=== PATIENT | female | born 1995 | race Hispanic/Latino ===

== ENCOUNTER → 2017-11-18 | Outpatient (CLI) | payer BC | END | disposition home or self-care (01) | LOC: RAH 08:23 | PROVIDERS: ATTEND Family Medicine | DX: R10.9 Unspecified abdominal pain (principal) | CPT/HCPCS: 76700 ==

== ENCOUNTER 2020-06-23 21:17 | Observation (INO) | payer BC, MEDICAID ==
[~2020-06-23] VITALS: Ht 160 cm; Wt 77.1 kg
[2020-06-23 22:22] LABS: APPEARANCE,URINE Clear (CLEAR); BILIRUBIN,URINE Negative (NEGATIVE); COLOR,URINE Yellow (YELLOW); GLUCOSE, URINE (UA) Negative (NEGATIVE); KETONES,URINE Trace mg/dL (NEGATIVE); LEUKOCYTE ESTERASE ,URINE Small (NEGATIVE); NITRATE,URINE Negative (NEGATIVE); OCCULT BLOOD,URINE Negative (NEGATIVE); PH,URINE 6.5 (5.0-8.0); PROTEIN,URINE Trace mg/dL (NEGATIVE)
[2020-06-23 23:05] LABS: RBC,URINE 0-1 /HPF (0-1)
[2020-06-23 23:06] LABS: BACTERIA,URINE Few /HPF (None Seen)
[2020-06-23] MEDS ORDERED: LACTATED RINGERS 1000ML 1,000 ML IV SCH (23:15)
[2020-06-23] MEDS ORDERED: LACTATED RINGERS 1000ML 1,000 ML IV ONE (23:19)
[2020-06-24] LABS: HEMATOCRIT 32.7 % (36-48); MEAN CORPUSCULAR HEMOGLOBIN 29.9 pg (27.0-33.0); MEAN CORPUSCULAR HGB CONC 33.3 g/dL (32.0-36.0); MEAN CORPUSCULAR VOLUME 89.8 fL (79-99); RED BLOOD CELL COUNT(AUTO) 3.64 MIL/uL (4.00-5.50); RED CELL DISTRIBUTION WIDTH 12.8 % (11.0-15.5); WHITE BLOOD COUNT (AUTO) 7.7 K/uL (4.8-10.8)
[2020-06-24 01:43] VITALS: BP 111/60
[2020-06-25 05:11] LABS: HEPATITIS Bs ANTIGEN SCREEN P Negative (Negative)
== END 2020-06-24 08:45 | disposition home or self-care (01) ==
LOC: EDH 21:17 → LDH 21:33
PROVIDERS: ADMIT Specialist; ATTEND Specialist
DX: O62.9 Abnormality of forces of labor, unspecified (principal); O46.92 Antepartum hemorrhage, unspecified, second trimester; Z3A.37 37 weeks gestation of pregnancy
CPT/HCPCS: 36415; 59025; 81001; 85027; 86592; 86850; 86900; 86901; 87340; 96360; 96361; 99283; G0378 ×12; J7120

== ENCOUNTER 2020-06-28 10:02 | Inpatient (IN) | payer BC, MEDICAID ==
[~2020-06-28] VITALS: Ht 160 cm; Wt 77.1 kg
[2020-06-28] MEDS: OXYTOCIN-LR 20 UNITS/1000 ML 1,000 ML IV SCH (11:45)
[2020-06-28 12:10] LABS: HEMATOCRIT 33.8 % (36-48); MEAN CORPUSCULAR VOLUME 88.3 fL (79-99); RED BLOOD CELL COUNT(AUTO) 3.83 MIL/uL (4.00-5.50); RED CELL DISTRIBUTION WIDTH 12.7 % (11.0-15.5); WHITE BLOOD COUNT (AUTO) 8.2 K/uL (4.8-10.8)
[2020-06-28 12:11] LABS: APPEARANCE,URINE Clear (CLEAR); BILIRUBIN,URINE Negative (NEGATIVE); COLOR,URINE Yellow (YELLOW); GLUCOSE, URINE (UA) Negative (NEGATIVE); KETONES,URINE Negative (NEGATIVE); LEUKOCYTE ESTERASE ,URINE Trace (NEGATIVE); NITRATE,URINE Negative (NEGATIVE); OCCULT BLOOD,URINE Negative (NEGATIVE); PH,URINE 6.5 (5.0-8.0); PROTEIN,URINE Negative (NEGATIVE)
[2020-06-28 12:33] LABS: BACTERIA,URINE Few /HPF (None Seen); SQUAMOUS EPITHELIAL CELL,UR Few /HPF (0-2)
[2020-06-28 20:11] VITALS: BP 104/59
[2020-06-29] MEDS: LACTATED RINGERS 1000ML 1,000 ML IV PRN ×2 (08:00→08:50)
[2020-06-29] MEDS ORDERED: OXYTOCIN-LR 20 UNITS/1000 ML 1,000 ML IV SCH (08:30)
[2020-06-29] MEDS ORDERED: LACTATED RINGERS 500 ML 500 ML IV PRN (08:30)
[2020-06-29] MEDS ORDERED: ROPIVACAINE 0.2% 100ML VIAL 100 ML EP SCH (08:30)
[2020-06-29] MEDS ORDERED: EPHEDRINE SULFATE 50 MG/ML AMPULE IVP PRN (08:30)
[2020-06-29] MEDS ORDERED: NALOXONE HCL 0.4 MG/1 ML ML IV PRN (08:30)
[2020-06-29 09:12] LABS: HEPATITIS Bs ANTIGEN SCREEN P Negative (Negative)
[2020-06-29] MEDS ORDERED: ACETAMINOPHEN 325 MG TAB PO PRN (11:15)
[2020-06-29] MEDS ORDERED: ACETAMINOPHEN WITH CODEINE 1 TAB TAB PO PRN (11:15)
[2020-06-29] MEDS ORDERED: MEASLES/MUMPS/RUBELLA VACCINE, LIVE 0.5 ML/VIAL SQ PRN (11:15)
[2020-06-29] MEDS ORDERED: LANOLIN 30GM OINTMENT TP PRN (11:15)
[2020-06-29] MEDS ORDERED: DIPH,PERTUSS(ACELL),TET VAC/PF 0.5 ML VIAL IM PRN (11:15)
[2020-06-29] MEDS: OXYTOCIN-LR 20 UNITS/1000 ML 1,000 ML IV SCH (11:45)
[2020-06-29 16:14] VITALS: BP 120/67
[2020-06-29 18:43] VITALS: BP 116/70
[2020-06-29] MEDS ORDERED: PREN1TAB80 PO (20:00)
[2020-06-29] MEDS: DOCUSATE SODIUM 100 MG CAP PO SCH (20:56)
[2020-06-29] MEDS: IBUPROFEN 600 MG TABLET PO PRN (20:57)
[2020-06-29 23:11] VITALS: BP 92/55
[2020-06-30 03:10] VITALS: BP 102/68
[2020-06-30] MEDS ORDERED: FLU VACC QS2020-21(6MOS UP)/PF 60 MCG/0.5 ML ML IM ONE ×2 (03:15→05:14)
[2020-06-30] MEDS ORDERED: MEASLES/MUMPS/RUBELLA VACCINE, LIVE 0.5 ML/VIAL SQ ONE (03:15)
[2020-06-30] MEDS: IBUPROFEN 600 MG TABLET PO PRN (05:31)
[2020-06-30 06:28] VITALS: BP 103/62
[2020-06-30] MEDS: DOCUSATE SODIUM 100 MG CAP PO SCH (08:25)
[2020-06-30] MEDS: BENZOCAINE/LANOLIN/ALOE VERA 60 ML AEROSOL TP PRN ×2 (08:59→09:00)
[2020-06-30] MEDS: WITCH HAZEL 1 PAD TP PRN ×2 (08:59→09:00)
[2020-06-30 11:23] VITALS: BP 118/68
== END 2020-06-30 12:40 | disposition home or self-care (01) | DRG 807 ==
LOC: LDH 11:19 → WSH 06-29 18:31
PROVIDERS: ADMIT Specialist; ATTEND Specialist
PROC: 10E0XZZ Delivery of Products of Conception, External Approach (ICD-10-PCS; principal; 2020-06-29)
PROC: 3E0R3BZ Introduction of Anesthetic Agent into Spinal Canal, Percutaneous Approach (ICD-10-PCS; 2020-06-29)
PROC: 00HU33Z Insertion of Infusion Device into Spinal Canal, Percutaneous Approach (ICD-10-PCS; 2020-06-29)
PROC: 3E0134Z Introduction of Serum, Toxoid and Vaccine into Subcutaneous Tissue, Percutaneous Approach (ICD-10-PCS; 2020-06-29)
PROC: 0HQ9XZZ Repair Perineum Skin, External Approach (ICD-10-PCS; 2020-06-29)
PROC: 10907ZC Drainage of Amniotic Fluid, Therapeutic from Products of Conception, Via Natural or Artificial Opening (ICD-10-PCS; 2020-06-29)
PROC: 10907ZC Drainage of Amniotic Fluid, Therapeutic from Products of Conception, Via Natural or Artificial Opening (ICD-10-PCS; 2020-06-29)
PROC: 3E02340 Introduction of Influenza Vaccine into Muscle, Percutaneous Approach (ICD-10-PCS; 2020-06-30)
PROC: 3E0134Z Introduction of Serum, Toxoid and Vaccine into Subcutaneous Tissue, Percutaneous Approach (ICD-10-PCS; 2020-06-30)
PROC: 3E0134Z Introduction of Serum, Toxoid and Vaccine into Subcutaneous Tissue, Percutaneous Approach (ICD-10-PCS; 2020-06-30)
DX: O98.32 Other infections with a predominantly sexual mode of transmission complicating childbirth (principal); Z37.0 Single live birth; Z23 Encounter for immunization; O70.0 First degree perineal laceration during delivery; A56.8 Sexually transmitted chlamydial infection of other sites; Z3A.38 38 weeks gestation of pregnancy
CPT/HCPCS: 36415; 81001; 85027; 86592; 86850; 86900; 86901; 87340; 90707; A4314; A4606; G0378; J2590; J7120; Q2035

== ENCOUNTER 2023-03-16 19:38 | Observation (INO) | payer BC, MEDICAID ==
[~2023-03-16] VITALS: Ht 160 cm; Wt 83.0 kg
[~2023-03-16 19:38] MED LIST: PREN1TAB80 PO
[2023-03-16 19:52] VITALS: BP 119/73; PULSE 69; RESP 20
[2023-03-16 20:50] LABS: APPEARANCE,URINE CLEAR (CLEAR); BILIRUBIN,URINE NEGATIVE (NEGATIVE); COLOR,URINE LIGHT-YELLOW (YELLOW); GLUCOSE, URINE (UA) NEGATIVE (NEGATIVE); KETONES,URINE NEGATIVE (NEGATIVE); LEUKOCYTE ESTERASE ,URINE NEGATIVE Leu/uL (NEGATIVE); NITRATE,URINE NEGATIVE (NEGATIVE); OCCULT BLOOD,URINE NEGATIVE (NEGATIVE); PH,URINE 6.5 (5.0-8.0); PROTEIN,URINE NEGATIVE (NEGATIVE); UROBILINOGEN,URINE 0.2 mg/dL (0.2-1.0)
[2023-03-16 20:54] LABS: ADD UA MICROSCOPIC NO
[2023-03-16 21:12] LABS: HEMATOCRIT 32.2 % (36-48); MEAN CORPUSCULAR HEMOGLOBIN 29.2 pg (27.0-33.0); MEAN CORPUSCULAR HGB CONC 33.2 g/dL (32.0-36.0); RED BLOOD CELL COUNT(AUTO) 3.66 MIL/uL (4.00-5.50); RED CELL DISTRIBUTION WIDTH 12.8 % (11.0-15.5); WHITE BLOOD COUNT (AUTO) 10.4 K/uL (4.8-10.8)
[2023-03-16] MEDS ORDERED: LACTATED RINGERS 1000ML 1,000 ML IV PRN (21:30)
[2023-03-16] MEDS ORDERED: OXYTOCIN-LR 30 UNITS/500ML 500 ML IV SCH (21:30)
[2023-03-17 06:49] LABS: RAPID PLASMA REAGIN NONREACTIVE (NONREACTIVE)
[2023-03-18] MEDS ORDERED: LACTATED RINGERS 1000ML 1,000 ML IV ONE (12:34)
[2023-03-18] MEDS ORDERED: OXYTOCIN-LR 30 UNITS/500ML 500 ML IV ONE ×2 (12:35→16:31)
[2023-03-18] MEDS ORDERED: FENTANYL CITRATE PF 50 MCG/1 ML 2ML VIAL ONE (13:13)
[2023-03-18] MEDS ORDERED: METHYLERGONOVINE MALEATE 0.2 MG/1 ML ML ONE (15:44)
[2023-03-18] MEDS ORDERED: IBUPROFEN 600 MG TABLET ONE (19:42)
[2023-03-18] MEDS ORDERED: DOCUSATE SODIUM 100 MG CAP PO ONE (20:54)
[2023-03-18] MEDS ORDERED: PREN1TAB80 PO (21:05)
== END 2023-03-17 09:15 | disposition home or self-care (01) ==
LOC: EDH 19:38 → OBSVTOIN 20:09 → LDH 20:09 → INTOOBSV 20:09
PROVIDERS: ADMIT Obstetrics & Gynecology; ATTEND Obstetrics & Gynecology
DX: O42.92 Full-term premature rupture of membranes, unspecified as to length of time between rupture and onset of labor (principal); O62.9 Abnormality of forces of labor, unspecified; Z3A.37 37 weeks gestation of pregnancy; Z79.899 Other long term (current) drug therapy
CPT/HCPCS: 59025; 85027; 86592; 86850; 86900; 86901; 87340; 86701; 87390; 81003; 36415; 96360; 96361; G0378 ×2; J7120; J2210; J3010

== ENCOUNTER 2023-03-18 12:29 | Inpatient (IN) | payer BC, MEDICAID ==
[~2023-03-18] VITALS: Ht 160 cm; Wt 81.6 kg
[2023-03-18 15:06] LABS: BASOPHILS # (AUTO) 0.04 K/uL (0.00-0.20); BASOPHILS % (AUTO) 0.4 % (0.0-5.0); HEMATOCRIT 32.5 % (36-48); IMMATURE GRANULOCYTE ABSOLUTE 0.05 K/uL (0-1); LYMPHOCYTES % (AUTO) 19.1 % (21.0-51.0); MEAN CORPUSCULAR HEMOGLOBIN 29.1 pg (27.0-33.0); MEAN CORPUSCULAR HGB CONC 32.9 g/dL (32.0-36.0); MEAN CORPUSCULAR VOLUME 88.3 fL (79-99); MONOCYTES # (AUTO) 0.6 K/uL (0.1-1.0); MONOCYTES % (AUTO) 5.7 % (3.0-13.0); NEUTROPHILS # (AUTO) 7.8 K/uL (1.8-7.7); NEUTROPHILS % (AUTO) 74.3 % (40.0-77.0); PLATELET COUNT (AUTO) 315 K/uL (130-400); RED BLOOD CELL COUNT(AUTO) 3.68 MIL/uL (4.00-5.50); RED CELL DISTRIBUTION WIDTH 12.9 % (11.0-15.5); WHITE BLOOD COUNT (AUTO) 10.5 K/uL (4.8-10.8)
[2023-03-18] MEDS ORDERED: WITCH HAZEL 1 PAD TP PRN (16:30)
[2023-03-18] MEDS ORDERED: DIPH,PERTUSS(ACELL),TET VAC/PF 0.5 ML VIAL IM PRN (16:30)
[2023-03-18] MEDS ORDERED: BENZOCAINE/LANOLIN/ALOE VERA 60 ML AEROSOL TP PRN (16:30)
[2023-03-18] MEDS ORDERED: ACETAMINOPHEN WITH CODEINE 1 TAB TAB PO PRN (16:30)
[2023-03-18] MEDS ORDERED: ACETAMINOPHEN 325 MG TAB PO PRN (16:30)
[2023-03-18] MEDS ORDERED: LANOLIN 30GM OINTMENT TP PRN (16:30)
[2023-03-18 19:30] VITALS: BP 114/78; PULSE 78; RESP 20
[2023-03-18] MEDS: IBUPROFEN 600 MG TABLET PO PRN (19:45)
[2023-03-18 20:23] VITALS: BP 133/81
[2023-03-18] MEDS: DOCUSATE SODIUM 100 MG CAP PO SCH (20:56)
[2023-03-18] MEDS ORDERED: PREN1TAB80 PO (21:05)
[2023-03-18 21:52] VITALS: BP 104/69; PULSE 57; RESP 18
[2023-03-18 23:21] VITALS: BP 105/61; PULSE 60; RESP 18
[2023-03-19 03:40] VITALS: BP 98/65; PULSE 70; RESP 18
[2023-03-19 05:51] LABS: HEMATOCRIT 29.1 % (36-48); MEAN CORPUSCULAR HEMOGLOBIN 28.8 pg (27.0-33.0); MEAN CORPUSCULAR HGB CONC 32.3 g/dL (32.0-36.0); MEAN CORPUSCULAR VOLUME 89.3 fL (79-99); RED BLOOD CELL COUNT(AUTO) 3.26 MIL/uL (4.00-5.50); RED CELL DISTRIBUTION WIDTH 12.9 % (11.0-15.5); WHITE BLOOD COUNT (AUTO) 9.7 K/uL (4.8-10.8)
[2023-03-19] MEDS: DOCUSATE SODIUM 100 MG CAP PO SCH (08:15)
[2023-03-19] MEDS: IBUPROFEN 600 MG TABLET PO PRN ×2 (08:19→15:16)
[2023-03-19 12:14] VITALS: BP 103/67; PULSE 70; RESP 18
[2023-03-19 16:20] VITALS: BP 107/67; PULSE 70; RESP 18
[2023-03-19] MEDS ORDERED: IBUP-2088 PO (17:19)
[2023-03-20 05:13] LABS: HEPATITIS Bs ANTIGEN SCREEN P Negative (Negative)
== END 2023-03-19 17:45 | disposition home or self-care (01) | DRG 788 ==
LOC: LDH 12:29 → WSH 21:45
PROVIDERS: ADMIT Obstetrics & Gynecology; ATTEND Obstetrics & Gynecology
PROC: 10D00Z1 Extraction of Products of Conception, Low, Open Approach (ICD-10-PCS; principal; 2023-03-18)
DX: O69.81X0 Labor and delivery complicated by cord around neck, without compression, not applicable or unspecified (principal); Z37.0 Single live birth; Z3A.37 37 weeks gestation of pregnancy
CPT/HCPCS: 36415; 85025; 85027; 86592; 86850; 86900; 86901; 87340; A4314; A4351; G0378